=== PATIENT | female | born 1985 | race Caucasian/White ===

== ENCOUNTER 2018-02-08 14:27 | Outpatient (CLI) | END 2018-02-08 16:29 | disposition home or self-care (01) ==

== ENCOUNTER 2018-02-12 11:12 | Outpatient (CLI) | END 2018-02-12 13:30 | disposition home or self-care (01) ==

== ENCOUNTER 2018-02-15 09:20 | Outpatient (CLI) | END 2018-02-15 11:25 | disposition home or self-care (01) ==

== ENCOUNTER 2018-02-15 21:06 | Inpatient (IN) | END 2018-02-18 16:30 | disposition home or self-care (01) | DRG 807 ==